=== PATIENT | male | born 1990 | race Caucasian/White ===

== ENCOUNTER 2017-09-25 14:19 | Emergency (ER) | payer OTHER ==
--- NOTE | 2017-09-25 14:36 | EDPHY ---
H & P Smoking Status: Current every day smoker Time Seen by Provider: 09/25/17 14:34 HPI/ROS: CHIEF COMPLAINT: Multiple left finger laceration HISTORY OF PRESENT ILLNESS: 27-year-old yrnsl-apvc-kcblwnal male with up-to- date tetanus was using a circular saw sustained accidental skin avulsion to the left 2nd, 3rd, 4th digit palmar aspect distal phalanx. No flexor or extensor deficits. Occurred shortly prior to arrival. Was accidental. No paresthesia PHYSICAL EXAM (Prior to examination, patient consented to physical exam, hands were washed and my usual and customary physical exam procedures followed) 1) GENERAL: Well-developed, well-nourished, alert and oriented. Appears to be in no acute distress. 2) HEAD: Normocephalic 3) HEENT: sclera anicteric 4) LUNGS: Breathing comfortably. 5) SKIN: Left 2nd, 3rd, 4th toe distal phalanx palmar aspect skin avulsion the largest of which is on the 3rd digit measuring 2 cm x 1 cm. 6) MUSCULOSKELETAL: FDP, FDS function of affected digits is intact with no deficits 7) NEUROLOGIC: Full sensation two-point discrimination intact at all affected digits (Pk,Roberto Lindsay) Constitutional: Initial Vital Signs Temperature (C) 36.8 C 09/25/17 14:22 Heart Rate 90 09/25/17 14:22 Respiratory Rate 16 09/25/17 14:22 Blood Pressure 133/80 H 09/25/17 14:22 O2 Sat (%) 95 09/25/17 14:22 O2 Delivery Mode Room Air Allergies/Adverse Reactions: No Known Allergies Allergy (Unverified 09/25/17 14:22) Home Medications: Medication Instructions Recorded Cephalexin [Keflex] 500 mg PO TID 5 Days cap 09/25/17 MDM/Departure - MDM Medications Given: Discontinued Medications Cephalexin HCl (Keflex) 500 mg PO EDNOW ONE PRN Reason: Protocol Stop: 09/25/17 14:38 Last Admin: 09/25/17 14:51 Dose: 500 mg ED Course/Re-evaluation: Patient's wounds will be allowed to heal via secondary intention. Wounds have been dressed with Surgicel, started on prophylactic antibiotics. Given usual and customary wound precautions and instructions Care of patient under supervision of secondary supervising physician Dr Berrios . (Roberto Whittington) The patient was evaluated and managed by the Physician Buyer Broker. My co- signature indicates that I have reviewed this chart and I agree with the findings and plan of care as documented. I am the secondary supervising physician. (Anu Berrios) - Depart Disposition: Home, Routine, Self-Care Clinical Impression: Skin avulsion Condition: Good Instructions: Skin Avulsion (ED) Additional Instructions: Return to the ER if you develop redness, swelling, discharge, warmth to the wound, red streaks going up your arm, or any other symptoms that concern you. Prescriptions: Cephalexin [Keflex] 500 mg PO TID 5 Days cap Referrals: Garrick Jacob MD [Medical Doctor] - 09/29/17
[2017-09-25] MEDS ORDERED: CEPHALEXIN 500 MG CAP PO ONE (14:37)
[2017-09-25 15:03] VITALS: RESP 16; TEMP 98.2
[2017-09-25 15:33] VITALS: BP 130/84; PULSE 84; O2SAT 94
== END 2017-09-25 15:33 | disposition home or self-care (01) ==
DX: S61.201A Unspecified open wound of left index finger without damage to nail, initial encounter (principal); S61.203A Unspecified open wound of left middle finger without damage to nail, initial encounter; S61.205A Unspecified open wound of left ring finger without damage to nail, initial encounter; F17.200 Nicotine dependence, unspecified, uncomplicated; W27.0XXA Contact with workbench tool, initial encounter